=== PATIENT | female | born 1990 | race Two or more races ===

== ENCOUNTER 2023-11-08 19:18 | Emergency (ER) | payer OTHER ==
[2023-11-08] MEDS ORDERED: TETANUS-DIPTH-ACEL PERTUSSIS 0.5ML SYR Tdap IM ONE (19:45)
[2023-11-08 20:20] VITALS: BP 110/73; PULSE 60; RESP 18; TEMP 98.1; O2SAT 99
== END 2023-11-08 20:21 | disposition home or self-care (01) ==
LOC: ER 19:18
DX: S61.432A Puncture wound without foreign body of left hand, initial encounter (principal); Z20.6 Contact with and (suspected) exposure to human immunodeficiency virus [HIV]; W46.1XXA Contact with contaminated hypodermic needle, initial encounter; Y93.89 Activity, other specified; Y92.89 Other specified places as the place of occurrence of the external cause; Y99.8 Other external cause status
CPT/HCPCS: 36415; 86703; 86706; 86803; 90471; 90715